=== PATIENT | female | born 1950 | race Caucasian/White ===

== ENCOUNTER 2017-01-19 13:33 | Emergency (ER) | payer OTHER, MEDICARE ==
[~2017-01-19] VITALS: Ht 152.4 cm; Wt 46.7 kg
[~2017-01-19 13:33] MED LIST: ALENDRONATE SOD70 M2 PO; DORZOLAMIDE-TIM10 ML OPH; LEVOTHYROXINE50 MCG PO; LEVOTHYROXINE75 MCG PO; LUMIGAN2.5 ML OPH; MECLIZINE HCL25 MG PO
[2017-01-19 14:14] VITALS: BP 107/62
[2017-01-19] MEDS ORDERED: OXYBUTYNIN CHLOR5 M2 PO (15:00)
[2017-01-19 15:04] LABS: ABSOLUTE BASOPHIL COUNT 0 /CUMM (0.0-0.2); ABSOLUTE EOSINOPHIL COUNT 0.4 /CUMM (0.0-0.7); ABSOLUTE GRANULOCYTE CT 2.5 /CUMM (1.4-6.5); ABSOLUTE LYMPH COUNT 1.6 /CUMM (1.2-3.4); ABSOLUTE MONOCYTE COUNT 0.5 /CUMM (0.10-0.60); EOSINOPHIL % 7.1 % (0-5); GRANULOCYTE % 49.5 % (42.2-75.2); HEMATOCRIT 38.7 % (37-47); MEAN CORPUSCULAR HGB 31.1 PG (27.0-31.0); MEAN CORPUSCULAR HGB CONC 34.1 G/DL (33.0-37.0); MEAN CORPUSCULAR VOLUME 91.3 FL (81.0-99.0); MEAN PLATELET VOLUME 7.5 FL (7.4-10.4); PLATELET COUNT 180 /CUMM (130-400); RBC DISTRIBUTION WIDTH 13.6 % (11.5-14.5); RED BLOOD CELL CT 4.23 /CUMM (4.20-5.40)
--- NOTE | 2017-01-19 15:09 | CT SCAN REPORT ---
EXAMINATION: CT HEAD WITHOUT CONTRAST CT CERVICAL SPINE WITHOUT CONTRAST CLINICAL INFORMATION: 66-year-old woman with right arm numbness and tingling. COMPARISON: None. TECHNIQUE: Imaging was performed from the skull base to vertex without intravenous administration of contrast. In addition, helical noncontrast CT imaging was acquired through the cervical spine and source images were reviewed along with axial reconstructions and sagittal and coronal MPRs. DLP: 787 mGy-cm FINDINGS: HEAD: No intracranial mass, hemorrhage, or midline shift is visualized. The ventricles and sulci are age-appropriate. No extra-axial collections are identified. There is mild mucosal thickening in the ethmoid air cells. CERVICAL SPINE: There is no evidence of acute cervical spine fracture. Vertebral bodies remain normal in height. There is straightening of the normal cervical lordosis and subtle anterolisthesis of C5 on C6. Degenerative endplate changes are most apparent at C6-C7, where there is also mild loss of normal disc space. There are coarse calcifications in the right lobe of the thyroid gland. No other pre- or paravertebral soft tissue abnormality is identified. Limited assessment of the lung apices is unremarkable. IMPRESSION: 1. No acute intracranial pathology. 2. No CT evidence of acute cervical spine fracture or traumatic subluxation.
--- NOTE | 2017-01-19 15:31 | ED UPPER/LOWER EXTREMITY COMPL ---
History of Present Illness General Chief Complaint: Upper Extremity Problem Stated Complaint: RT ARM NUMBNESS Source: patient, family, old records Exam Limitations: no limitations Vital Signs & Intake/Output Vital Signs & Intake/Output Vital Signs Date Time Temp Pulse Resp B/P Pulse O2 O2 Flow FiO2 Ox Delivery Rate 01/19 1414 97.6 20 107/62 97 Room Air Allergies Uncoded Allergies: CHOCOLATE (SEIZURES 08/18/16) Reconcile Medications Alendronate Sodium 70 MG TABLET 1 TAB PO QW BONE (Reported) in the morning, at least 30 minutes before the first food, beverage, or medication of the day Bimatoprost (Lumigan) 2.5 ML DROPS 1 GTT OPH QPM GLAUCOMA (Reported) Dorzolamide HCl/Timolol Maleat (Dorzolamide-Timolol Eye Drops) 10 ML DROPS 1 GTT OPH BID GLAUCOMA (Reported) Levothyroxine Sodium 75 MCG TABLET 1 TAB PO DAILY AC THYROID (Reported) Levothyroxine Sodium 50 MCG TABLET 1 TAB PO DAILY AC THYROID (Reported) Oxybutynin Chloride 5 MG TABLET 1 TAB PO BID BLADDER (Reported) Triage Note: presents to ed for evaluation fo right arm and shoulder pain and numbness of the right hand. she took an aspirin and was recommended by her pharmacist to be evaluated in the ed. denied chest pain, nausea or diaphresis. she nwas at rest when the symptoms began approximately one hr ago and subsided without interventions. Triage Nurses Notes Reviewed? yes Onset: Just prior to arrival Duration: hour(s):, better, gone now Timing: recent history Severity: mild Pain/Injury Location: Right: Shoulder, Forearm, Hand. Method of Injury: unknown Modifying Factors: Improves With: rest. 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 She has had congestion nonproductive cough started Mucinex so she returned to the pharmacy to ask if this is a side effect and was given aspirin and referred to the emergency department. 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 She denies fever chills nausea vomiting diarrhea abdominal pain chest pain shortness of breath headache dysuria rash bleeding trauma change in bowel bladder habit Past History Travel History Traveled to [place] past 21 day No Medical History Any Pertinent Medical History? see below for history EENT: glaucoma, hearing loss Musculoskeletal: osteoporosis Endocrine: hypothyroidism Surgical History Surgical History: non-contributory Psychosocial History What is your primary language Mohawk Tobacco Use: Never used Family History Hx Contributory? No Review of Systems Review of Systems Constitutional: Reports: no symptoms. EENTM: Reports: see HPI, nasal congestion. Respiratory: Reports: see HPI, cough. Cardiovascular: Reports: no symptoms. Gastrointestinal/Abdominal: Reports: no symptoms. Genitourinary: Reports: no symptoms. Musculoskeletal: Reports: see HPI. Skin: Reports: no symptoms. Neurological/Psychological: Reports: see HPI, numbness. Hematologic/Endocrine: Reports: no symptoms. Immunological: Reports: no symptoms. All Other Systems: Reviewed and Negative Physical Exam Physical Exam General Appearance: well developed/nourished, alert, awake, anxious, mild distress Head: atraumatic, normal appearance Eyes: Bilateral: normal appearance, PERRL, EOMI. Ears, Nose, Throat: normal pharynx, normal ENT inspection, hearing grossly normal Neck: normal inspection, supple, full range of motion, no midline tenderness Cardiovascular/Respiratory: normal breath sounds, normal peripheral pulses, regular rate/rhythm, no respiratory distress Peripheral Pulses: 4+ carotid (R), 4+ carotid (L), 2+ radial (R), 2+ radial (L) Back: normal inspection, normal range of motion, no vertebral tenderness Shoulder Left: normal range of motion, normal inspection Shoulder Right: normal range of motion, normal inspection Elbow Left: normal range of motion, normal inspection Elbow Right: normal range of motion, normal inspection Hand Left: normal inspection, normal range of motion Hand Right: normal inspection, normal range of motion Upper Extremity Reflexes: 2+: bicep (R), bicep (L), tricep (R), tricep (L). Leg Left: normal range of motion, normal inspection Leg Right: normal range of motion, normal inspection Hip Left: normal range of motion, normal inspection Hip Right: normal range of motion, normal inspection Knee Left: normal range of motion, normal inspection Knee Right: normal range of motion, normal inspection Foot Left: normal inspection, normal range of motion Foot Right: normal inspection, normal range of motion Lower Extremity Reflexes: 2+: knee (R), knee (L), ankle (R), ankle (L). Neurologic/Tendon: normal sensation, normal motor functions, normal tendon functions Skin: intact, normal color, warm/dry Lymphatic: no anterior cervical roshni Progress Differential Diagnosis: sprain, radiculopathy Plan of Care: Orders Procedure Date/time Status TROPONIN LEVEL 01/19 1429 Complete MAGNESIUM 01/19 1429 Complete COMPREHENSIVE METABOLIC PANEL 01/19 1429 Complete CBC WITHOUT DIFFERENTIAL 01/19 142 Complete EKG 01/19 1339 Active Laboratory Tests 01/19/17 1445: Anion Gap 9, Estimated GFR > 60, BUN/Creatinine Ratio 22.2, Glucose 87, Calcium 9.4, Magnesium 2.0, Total Bilirubin 0.4, AST 25, ALT 28, Alkaline Phosphatase 57 , Troponin I < 0.01, Total Protein 6.5, Albumin 3.6, Globulin 2.9, Albumin/ Globulin Ratio 1.2, CBC w Diff NO MAN DIFF REQ, RBC 4.23, MCV 91.3, MCH 31.1 H, RDW 13.6, MPV 7.5, Gran % 49.5, Lymphocytes % 31.6, Monocytes % 10.8 H, Eosinophils % 7.1 H, Basophils % 1.0, Absolute Granulocytes 2.5, Absolute Lymphocytes 1.6, Absolute Monocytes 0.5, Absolute Eosinophils 0.4, Absolute Basophils 0, PUBS MCHC 34.1 Diagnostic Imaging: Viewed by Me: CT Scan. Discussed w/RAD: CT Scan. Radiology Impression: no acute abnormality, no fracture, FINDINGS: HEAD: No intracranial mass, hemorrhage, or midline shift is visualized. The ventricles and sulci are age-appropriate. No extra-axial collections are identified. There is mild mucosal thickening in the ethmoid air cells. CERVICAL SPINE: There is no evidence of acute cervical spine fracture. Vertebral bodies remain normal in height. There is straightening of the normal cervical lordosis and subtle anterolisthesis of C5 on C6. Degenerative endplate changes are most apparent at C6-C7, where there is also mild loss of normal disc space. There are coarse calcifications in the right lobe of the thyroid gland. No other pre- or paravertebral soft tissue abnormality is identified. Limited assessment of the lung apices is unremarkable. IMPRESSION: 1. No acute intracranial pathology. 2. No CT evidence of acute cervical spine fracture or traumatic subluxation. Initial ED EKG: normal axis, normal intervals, normal p-waves, normal QRS complex, normal sinus rhythm, no ST T wave changes Departure Departure Time of Disposition: 1536 Disposition: HOME OR SELF CARE Condition: Stable Clinical Impression Primary Impression: Radicular pain of right upper extremity Referrals: VERENA MCPHERSON MD (PCP/Family) Departure Forms: Customer Survey General Discharge Information
== END 2017-01-19 15:52 ==
LOC: ERH 13:33
PROVIDERS: Emergency Medicine
DX: M54.12 Radiculopathy, cervical region (principal)
CPT/HCPCS: 93005; 93010

== ENCOUNTER 2018-03-05 17:11 | Emergency (ER) | payer OTHER, MEDICARE ==
[~2018-03-05 17:11] MED LIST changes: -LUMIGAN2.5 ML OPH; +LUMIGAN2.5 ML OS; +OXYBUTYNIN CHLOR5 M2 PO
--- NOTE | 2018-03-05 18:34 | ED CARDIAC/CP/PALPITATIONS ---
History of Present Illness General Chief Complaint: Chest Pain Stated Complaint: BIBA CHEST PAIN Source: patient, family Exam Limitations: no limitations Vital Signs & Intake/Output Vital Signs & Intake/Output Vital Signs Date Time Temp Pulse Resp B/P B/P Pulse O2 O2 Flow FiO2 Mean Ox Delivery Rate 03/05 2052 76 20 109/56 97 Room Air 03/056 98.9 82 18 120/56 97 Room Air 03/05 1730 99.6 83 20 127/69 95 Room Air Triage Nurses Notes Reviewed? yes Onset: Gradual Duration: hour(s): Timing: multiple episodes today Quality/Severity: moderate Location: central, epigastric Radiation: back, left breast Activities at Onset: walking HPI: 67yo female with hx of osteoporosis (on Alendronate) BIBA complaining of epigastric pain. Patient states that over the past few months she has had a few intermittent episodes of epigastric pain described as worse with walking. The pain always resolved on its own, patient never sought medical attention. Patient was worried this was related to her alendronate, she stopped taking this medication for the past 2 weeks. Patient states that today she had multiple episodes of epigastric pain described as sharp, 8/10, radiating to left chest and to back. Patient had a constant episode for which she called 911 for. Patient reports that currently she has no pain, it has resolved for the time being. Patient denies fevers, chills, malaise, dyspnea, cough, hemoptysis, vomiting, diarrhea. (Kacey ROWLAND,Kelsey Page) Allergies Coded Allergies: chocolate flavor (MIGRAINES, SEIZURES 03/05/18) Reconcile Medications Alendronate Sodium 70 MG TABLET 1 TAB PO QTHURS BONE (Reported) in the morning, at least 30 minutes before the first food, beverage, or medication of the day Bimatoprost (Lumigan) 2.5 ML DROPS 1 GTT OS QHS GLAUCOMA (Reported) Cholecalciferol (Vitamin D3) (Vitamin D) 1,000 UNIT TABLET 1 TAB PO DAILY SUPPLEMENT (Reported) Dorzolamide HCl/Timolol Maleat (Dorzolamide-Timolol Eye Drops) 10 ML DROPS 1 GTT OPH BID GLAUCOMA (Reported) Levothyroxine Sodium 75 MCG TABLET 1 TAB PO SATSUN THYROID (Reported) Levothyroxine Sodium 50 MCG TABLET 1 TAB PO MONTHRUFRI THYROID (Reported) Oxybutynin Chloride 5 MG TABLET 1 TAB PO BID BLADDER (Reported) Phenazopyridine HCl 200 MG TABLET 1 TAB PO BID DYSURIA (Reported) after food Sulfamethoxazole/Trimethoprim (Sulfamethoxazole-Tmp Ds Tablet) 800 MG-160 MG TABLET 1 TAB PO BID ABX (Reported) (Rey LEE,Sanjay Landers) Past History Travel History Traveled to [place] past 21 day No Medical History Any Pertinent Medical History? see below for history EENT: glaucoma, hearing loss Musculoskeletal: osteoporosis Endocrine: hypothyroidism Surgical History Surgical History: non-contributory Psychosocial History What is your primary language Kiswahili Family History Hx Contributory? No (Kelsey Cooley) Review of Systems Review of Systems Constitutional: Reports: no symptoms. EENTM: Reports: no symptoms. Respiratory: Reports: no symptoms. Cardiovascular: Reports: see HPI. GI: Reports: see HPI. Genitourinary: Reports: no symptoms. Musculoskeletal: Reports: no symptoms. Skin: Reports: no symptoms. Neurological/Psychological: Reports: no symptoms. Hematologic/Endocrine: Reports: no symptoms. Immunologic/Allergic: Reports: no symptoms. All Other Systems: Reviewed and Negative (Kelsey Cooley) Physical Exam Physical Exam General Appearance: well developed/nourished, no apparent distress, alert, awake Head: atraumatic, normal appearance Eyes: Bilateral: normal appearance. Ears, Nose, Throat: hearing grossly normal Neck: normal inspection, supple, full range of motion Respiratory: normal breath sounds, chest non-tender, no respiratory distress, lungs clear Cardiovascular: regular rate/rhythm, normal peripheral pulses Peripheral Pulses: 2+ radial (R), 2+ radial (L) Gastrointestinal: normal bowel sounds, soft, non-tender, no organomegaly Back: normal inspection, normal range of motion Extremities: normal inspection, normal range of motion, no edema Neurologic/Psych: awake, alert, oriented x 3 Skin: intact, normal color, warm/dry Core Measures ACS in differential dx? Yes CVA/TIA Diagnosis No Sepsis Present: No Sepsis Focused Exam Completed? No (Kelsey Cooley) Progress Differential Diagnosis: AMI, aortic dissection, atrial fibrillation, CHF/pulm edema, costochondritis, hyperventilation, musculoskeletal pain, myocarditis, pancreatitis, pericarditis, pneumonia, pneumothorax, PSVT, pulmonary embolism, unstable angina, V-fib/V-Tach Plan of Care: Orders Procedure Date/time Status TROPONIN LEVEL 03/05 2152 Complete EKG 03/05 2100 Active TROPONIN LEVEL 03/05 1949 Complete PARTIAL THROMBOPLASTIN TIME 03/05 1949 Complete PROTHROMBIN TIME 03/05 1949 Complete LIPASE 03/05 1949 Complete D-DIMER 03/05 1949 Complete AMYLASE 03/05 1949 Complete COMPREHENSIVE METABOLIC PANEL 03/05 1932 Complete CBC WITHOUT DIFFERENTIAL 03/05 1932 Complete Add-on Test (ER Only) 03/05 190 Active Add-on Test (ER Only) 03/05 1821 Active Telemetry/Tyre Finisher And Examiner 03/05 172 Active EKG 03/05 171 Active Laboratory Tests 03/05/18 2218: Troponin I < 0.01 03/05/182099: Troponin I Cancelled 03/05/181931: Anion Gap 11, Estimated GFR > 60, BUN/Creatinine Ratio 18.9, Glucose 85, Calcium 8.5, Total Bilirubin 0.5, AST 21, ALT 24, Alkaline Phosphatase 67, Troponin I < 0.01, Total Protein 6.1 L, Albumin 3.2 L, Globulin 2.9, Albumin/Globulin Ratio 1.1, Amylase 65, Lipase 61, PT 12.7 H, INR 1.16, APTT 32, D-Dimer High Sensitivty < 200, CBC w Diff NO MAN DIFF REQ, RBC 4.12 L, MCV 91.2, MCH 30.6, MCHC 33.6, RDW 13.5, MPV 7.4, Gran % 71.6, Lymphocytes % 12.1 L, Monocytes % 12.7 H, Eosinophils % 3.5, Basophils % 0.1, Absolute Granulocytes 4.2, Absolute Lymphocytes 0.7 L, Absolute Monocytes 0.7 H, Absolute Eosinophils 0.2, Absolute Basophils 0 03/05/18 1800: Sodium Cancelled, Potassium Cancelled, Chloride Cancelled, Carbon Dioxide Cancelled, Anion Gap Cancelled, BUN Cancelled, Creatinine Cancelled, Estimated GFR Cancelled, BUN/Creatinine Ratio Cancelled, Glucose Cancelled, Calcium Cancelled, Total Bilirubin Cancelled, AST Cancelled, ALT Cancelled, Alkaline Phosphatase Cancelled, Troponin I Cancelled, Total Protein Cancelled, Albumin Cancelled, Globulin Cancelled, Albumin/Globulin Ratio Cancelled, PT Cancelled, INR Cancelled, APTT Cancelled, D-Dimer High Sensitivty Cancelled, CBC w Diff Cancelled, WBC Cancelled, RBC Cancelled, Hgb Cancelled, Hct Cancelled, MCV Cancelled, MCH Cancelled, MCHC Cancelled, RDW Cancelled, Plt Count Cancelled, MPV Cancelled, Gran % Cancelled, Lymphocytes % Cancelled, Monocytes % Cancelled, Eosinophils % Cancelled, Basophils % Cancelled, Absolute Granulocytes Cancelled, Absolute Lymphocytes Cancelled, Absolute Monocytes Cancelled, Absolute Eosinophils Cancelled, Absolute Basophils Cancelled EKG is in sinus rhythm with nonspecific changes present. D-dimer is negative, low suspicion for acute pulmonary embolism at this time. Patient's first troponin enzyme is negative. We'll obtain chest x-ray to further evaluate this patient's sternal pain. Given the patient's history of this phosphonate use with epigastric pain will obtain abdominal CT scan for further evaluation. Patient remains without pain at this time. The patient was signed out to Dr. Le pending repeat EKG, troponin, labs. Diagnostic Imaging: Viewed by Me: Radiology Read. Discussed w/RAD: Radiology Read. CXR Impression: PATIENT: ESTUARDO GRAY PRESENT AGE: 67 PATIENT ACCOUNT NO: [id number] : 48 LOCATION: [facility] ORDERING PHYSICIAN: Kelsey ROWLAND SERVICE DATE: 03/05/18 EXAM TYPE: RAD - XRY-CHEST XRAY, TWO VIEWS EXAMINATION: XR CHEST CLINICAL INFORMATION: Epigastric pain. Rule out free air. COMPARISON: None TECHNIQUE: 2 views of the chest were obtained. FINDINGS: There is no free air under the hemidiaphragms. Coarse reticular markings are noted in the lungs. No airspace opacities or pleural effusions are seen. The cardiomediastinal silhouette is normal. No acute osseous abnormality is evident. IMPRESSION: No free air visible under the hemidiaphragms. Chronic coarse reticular markings in the lungs. No focal consolidation. DICTATED BY: Sanjay Hickman MD DATE/TIME DICTATED:03/05/181929 FUNCTIONAL SUPPORT ANALYST:LARRY DATE/TIME TRANSCRIBED:03/05/181929 CONFIDENTIAL, DO NOT COPY WITHOUT APPROPRIATE AUTHORIZATION. <Electronically signed in Other Vendor System> SIGNED BY: Sanjay Hickman MD 03/05/181933 Initial ED EKG: sinus rhythm @79bpm, nonspecific ST changes (Kacey ROWLAND,Kelsey Page) Diagnostic Imaging: Viewed by Me: CT Scan. Discussed w/RAD: CT Scan. Radiology Impression: PATIENT: ESTUARDO GRAY PRESENT AGE: 67 PATIENT ACCOUNT NO: [id number] : 48 LOCATION: ER ORDERING PHYSICIAN: Kelsey ROWLAND SERVICE DATE: 03/05/18 EXAM TYPE: CAT - CT ABD & PELVIS W IV CONTRAST EXAMINATION: CT ABDOMEN AND PELVIS WITH CONTRAST CLINICAL INFORMATION: Epigastric pain on Alendronate. COMPARISON: Limited abdominal ultrasound 12/05/2013. Chest CT 03/26/2016. TECHNIQUE: Multidetector volumetric imaging was performed of the abdomen and pelvis following IV administration of 95 mL of Optiray 320 intravenous contrast. Sagittal and coronal reformatted images were obtained on the technologist's workstation. FINDINGS: Atelectasis versus scarring The liver, spleen, adrenal glands, and pancreas are normal. Gallbladder is surgically absent with surgical clips in the gallbladder fossa. Common bile duct measures 1 cm, not unexpected following cholecystectomy. The kidneys exhibit symmetric nephrograms without evidence of hydronephrosis or nephrolithiasis. No focal renal lesions. The stomach is partially decompressed and not well evaluated. Small diverticulum projecting posteriorly from the proximal posterior greater curvature of the stomach is stable. There is no free air. Large volume intracolonic stool. The large and small bowel are normal in caliber without evidence of mechanical obstruction. No focal inflammatory changes adjacent to the large or the small bowel. The appendix is normal. There is no free air and there is no intra- abdominal free fluid. No mesenteric or retroperitoneal adenopathy. There is aortoiliac atherosclerotic calcification. Calcified uterine fibroids. No pelvic adenopathy. No free fluid within the pelvis. There are no acute osseous abnormalities. No significant soft tissue abnormality. IMPRESSION: - No acute findings to explain the patient's symptoms. - The stomach is partially decompressed and not well evaluated. There is no free air. - Calcified uterine fibroids. - Cholecystectomy. - Large volume intracolonic stool. No bowel obstruction. DICTATED BY: Donal Hurtado MD DATE/TIME DICTATED:03/05/181937 FUNCTIONAL SUPPORT ANALYST:LARRY DATE/TIME TRANSCRIBED:03/05/181937 CONFIDENTIAL, DO NOT COPY WITHOUT APPROPRIATE AUTHORIZATION. <Electronically signed in Other Vendor System> SIGNED BY: Donal Hurtado MD 03/05/181954 Repeat EKG: unchanged Rhythm Strip: normal sinus rhythm Comments: Patient and family have been updated on lab and CAT scan results. Questions have been answered. (Rey LEE,Sanjay Landers) Departure Departure Condition: Stable Clinical Impression Primary Impression: Epigastric pain Secondary Impressions: Chest pain Qualifiers: Chest pain type: unspecified Qualified Code: R07.9 - Chest pain, unspecified Departure Forms: Customer Survey General Discharge Information (Kacey ROWLAND,Kelsey Page) Departure Disposition: HOME OR SELF CARE Referrals: Darnell LEE,Satish Burt MD,Kaya (PCP/Family) Additional Instructions: FOLLOW UP WITH DR. LEZAMA AND DR. DELON WOOD IF SYMPTOMS WORSEN OR FOR ANY CONCERNS PA/AWNINGS MECHANIC Co-Sign Statement Statement: ED Attending supervision documentation- [X] I saw and evaluated the patient. I have also reviewed all the pertinent lab results and diagnostic results. I agree with the findings and the plan of care as documented in the PA's/AWNINGS MECHANIC's documentation. [X] I have reviewed the ED Record and agree with the PA's/AWNINGS MECHANIC's documentation. [] Additions or exceptions (if any) to the PAs/AWNINGS MECHANIC's note and plan are summarized below: [] (Rey LEE,Sanjay Landers) Critical Care Note Critical Care Note Critical Care Time: non-applicable (Kelsey Cooley)
--- NOTE | 2018-03-05 19:34 | RADIOLOGY REPORT ---
EXAMINATION: XR CHEST CLINICAL INFORMATION: Epigastric pain. Rule out free air. COMPARISON: None TECHNIQUE: 2 views of the chest were obtained. FINDINGS: There is no free air under the hemidiaphragms. Coarse reticular markings are noted in the lungs. No airspace opacities or pleural effusions are seen. The cardiomediastinal silhouette is normal. No acute osseous abnormality is evident. IMPRESSION: No free air visible under the hemidiaphragms. Chronic coarse reticular markings in the lungs. No focal consolidation.
--- NOTE | 2018-03-05 19:55 | CT SCAN REPORT ---
EXAMINATION: CT ABDOMEN AND PELVIS WITH CONTRAST CLINICAL INFORMATION: Epigastric pain on Alendronate. COMPARISON: Limited abdominal ultrasound 12/05/2013. Chest CT 03/26/2016. TECHNIQUE: Multidetector volumetric imaging was performed of the abdomen and pelvis following IV administration of 95 mL of Optiray 320 intravenous contrast. Sagittal and coronal reformatted images were obtained on the technologist's workstation. FINDINGS: Atelectasis versus scarring The liver, spleen, adrenal glands, and pancreas are normal. Gallbladder is surgically absent with surgical clips in the gallbladder fossa. Common bile duct measures 1 cm, not unexpected following cholecystectomy. The kidneys exhibit symmetric nephrograms without evidence of hydronephrosis or nephrolithiasis. No focal renal lesions. The stomach is partially decompressed and not well evaluated. Small diverticulum projecting posteriorly from the proximal posterior greater curvature of the stomach is stable. There is no free air. Large volume intracolonic stool. The large and small bowel are normal in caliber without evidence of mechanical obstruction. No focal inflammatory changes adjacent to the large or the small bowel. The appendix is normal. There is no free air and there is no intra-abdominal free fluid. No mesenteric or retroperitoneal adenopathy. There is aortoiliac atherosclerotic calcification. Calcified uterine fibroids. No pelvic adenopathy. No free fluid within the pelvis. There are no acute osseous abnormalities. No significant soft tissue abnormality. IMPRESSION: - No acute findings to explain the patient's symptoms. - The stomach is partially decompressed and not well evaluated. There is no free air. - Calcified uterine fibroids. - Cholecystectomy. - Large volume intracolonic stool. No bowel obstruction.
[2018-03-05 20:06] LABS: ABSOLUTE BASOPHIL COUNT 0 /CUMM (0.0-0.2); ABSOLUTE EOSINOPHIL COUNT 0.2 /CUMM (0.0-0.7); ABSOLUTE GRANULOCYTE CT 4.2 /CUMM (1.4-6.5); ABSOLUTE LYMPH COUNT 0.7 /CUMM (1.2-3.4); ABSOLUTE MONOCYTE COUNT 0.7 /CUMM (0.10-0.60); BASOPHIL % 0.1 % (0.0-2.0); EOSINOPHIL % 3.5 % (0-5); GRANULOCYTE % 71.6 % (42.2-75.2); HEMATOCRIT 37.6 % (37-47); MEAN CORPUSCULAR HGB 30.6 PG (27.0-31.0); MEAN CORPUSCULAR HGB CONC 33.6 G/DL (33.0-37.0); MEAN CORPUSCULAR VOLUME 91.2 FL (81.0-99.0); MEAN PLATELET VOLUME 7.4 FL (7.4-10.4); PLATELET COUNT 189 /CUMM (130-400); RBC DISTRIBUTION WIDTH 13.5 % (11.5-14.5); RED BLOOD CELL CT 4.12 /CUMM (4.20-5.40); WHITE BLOOD CELL COUNT 5.9 /CUMM (4.8-10.8)
[2018-03-05 20:14] LABS: PT 12.7 SEC (9.4-12.5); PTT 32 SEC (25-37)
[2018-03-05] MEDS ORDERED: VITAMIN D1000 UNIT PO (21:13)
[2018-03-05] MEDS ORDERED: SULFAMETHOXAZO1 EAC1 PO (21:14)
[2018-03-05] MEDS ORDERED: PHENAZOPYRIDIN200 M3 PO (21:19)
[2018-03-05 23:15] VITALS: BP 127/59
== END 2018-03-05 23:21 ==
LOC: ERH 17:11
PROVIDERS: Physician Assistant
DX: R10.13 Epigastric pain (principal); R07.9 Chest pain, unspecified
CPT/HCPCS: 71046; 74177; 93005; 93010

== ENCOUNTER 2018-03-09 13:23 | Emergency (ER) | payer OTHER, MEDICARE ==
[~2018-03-09] VITALS: Ht 152.4 cm; Wt 49.0 kg
[~2018-03-09 13:23] MED LIST changes: +PHENAZOPYRIDIN200 M3 PO; +SULFAMETHOXAZO1 EAC1 PO; +VITAMIN D1000 UNIT PO
[2018-03-09 13:30] VITALS: BP 108/55
--- NOTE | 2018-03-09 15:24 | ED SKIN/ALLERGY COMPLAINT ---
History of Present Illness General Chief Complaint: Skin Rash/ Abcess Stated Complaint: RASH ALL OVER Source: patient Exam Limitations: no limitations Vital Signs & Intake/Output Vital Signs & Intake/Output Vital Signs Date Time Temp Pulse Resp B/P B/P Pulse O2 O2 Flow FiO2 Mean Ox Delivery Rate 03/09 1330 95.9 56 18 108/55 99 Room Air Allergies Coded Allergies: chocolate flavor (MIGRAINES, SEIZURES 03/05/18) Reconcile Medications Alendronate Sodium 70 MG TABLET 1 TAB PO QTHURS BONE (Reported) in the morning, at least 30 minutes before the first food, beverage, or medication of the day Bimatoprost (Lumigan) 2.5 ML DROPS 1 GTT OS QHS GLAUCOMA (Reported) Cholecalciferol (Vitamin D3) (Vitamin D) 1,000 UNIT TABLET 1 TAB PO DAILY SUPPLEMENT (Reported) Dorzolamide HCl/Timolol Maleat (Dorzolamide-Timolol Eye Drops) 10 ML DROPS 1 GTT OPH BID GLAUCOMA (Reported) Hydroxyzine Hydrochloride (Atarax) 50 MG TAB 1 TAB PO TID ITCHING Levothyroxine Sodium 75 MCG TABLET 1 TAB PO SATSUN THYROID (Reported) Levothyroxine Sodium 50 MCG TABLET 1 TAB PO MONTHRUFRI THYROID (Reported) Oxybutynin Chloride 5 MG TABLET 1 TAB PO BID BLADDER (Reported) Phenazopyridine HCl 200 MG TABLET 1 TAB PO BID DYSURIA (Reported) after food Prednisone 50 MG TABLET 1 TAB PO DAILY RASH Sulfamethoxazole/Trimethoprim (Sulfamethoxazole-Tmp Ds Tablet) 800 MG-160 MG TABLET 1 TAB PO BID ABX (Reported) Triage Note: 67F SEEN 03/05 FOR CHEST PAIN AND WAS DISCHARGED HOME AT NIGHT, WOKE UP WITH ITCHING AND RASH BEGAN TO LEGS AND NOW ALL OVER. DENIES NEW MEDS OR MEDS IN ED, BUT DOES REPORT HAVING CONTRAST CT WHILE HERE. O2 SAT 99% RA AND AIRWAY PATENT, NO ANGIOEDEMA OBSERVED. MANAGING SECRETIONS WELL. LEFT EYE REDDENED AND ALSO ITCHY Triage Nurses Notes Reviewed? yes Onset: Abrupt Duration: day(s):, constant Timing: recent history Severity: moderate, severe Possible Factors: no cause identified No Modifying Factors: none HPI: 67-year-old female comes into the emergency room with complaints of a rash. Patient reports that she was seen here the other day. She had a complete cardiac workup which was normal. She reports that she started with a rash for a couple days. Located on her legs her rear end her arms, in her chest. Itching. Denies any new medications. Denies any new foods. Denies any tongue swelling or difficulty breathing. She is here primarily for the rash. She has no complaints of chest pain or shortness of breath. (Maynor Velazquez) Past History Travel History Traveled to [place] past 21 day No Medical History Any Pertinent Medical History? see below for history Neurological: NONE EENT: glaucoma, hearing loss Cardiovascular: NONE Respiratory: NONE Gastrointestinal: NONE Hepatic: NONE Renal: NONE Musculoskeletal: osteoporosis Psychiatric: NONE Endocrine: hypothyroidism Blood Disorders: NONE Cancer(s): NONE CONSULTING SYSTEMS ENGINEER/Reproductive: NONE Surgical History Surgical History: non-contributory Psychosocial History What is your primary language Citizen Of [place] Tobacco Use: Refused to answer Family History Hx Contributory? No (Maynor Velazquez) Review of Systems Review of Systems Constitutional: Reports: no symptoms. EENTM: Reports: no symptoms. Respiratory: Reports: no symptoms. Cardiovascular: Reports: no symptoms. GI: Reports: no symptoms. Genitourinary: Reports: no symptoms. Musculoskeletal: Reports: no symptoms. Skin: Reports: see HPI. Neurological/Psychological: Reports: no symptoms. Hematologic/Endocrine: Reports: no symptoms. Immunologic/Allergic: Reports: no symptoms. All Other Systems: Reviewed and Negative (Maynor Velazquez) Physical Exam Physical Exam General Appearance: well developed/nourished, mild distress Head: atraumatic Eyes: Bilateral: normal appearance. Ears, Nose, Throat: normal ENT inspection, hearing grossly normal Neck: normal inspection Respiratory: no respiratory distress Cardiovascular: regular rate/rhythm Gastrointestinal: non-tender Back: normal inspection Extremities: normal inspection, normal range of motion, no edema Neurologic/Psych: awake, alert, oriented x 3, normal mood/affect Skin: intact, rash Skin Problem Location: papular rash, erythematous,generalized (Maynor Velazquez) Progress Differential Diagnosis: abscess/cellulitis, allergic reaction, anaphylaxis, angioedema, contact dermatitis, drug reaction Plan of Care: 03/09/2018 6:23:16 PM Patient started on prednisone and hydroxyzine. Follow-up with appointment coordinator. No evidence of anaphylaxis. Clinically looks well. Rashes not appear to be infectious. Told patient etiology is unclear at this time and she needs appropriate follow-up but patient is safe for discharge. (Maynor Velazquez) Departure Departure Disposition: HOME OR SELF CARE Condition: Stable Clinical Impression Primary Impression: Rash and nonspecific skin eruption Referrals: Kaya Burt MD (PCP/Family) Additional Instructions: Take prednisone and hydroxyzine as prescribed. Follow-up with appointment coordinator. Return if any concerns worsening symptoms. Please go over all results of today's visit with your primary care doctor. Contact your primary care doctor to let them know you were here in the emergency room. There may be nonspecific findings which may not be related to your visit today here in the emergency room but may require further evaluation and chronic monitoring by your primary care doctor. If you had a laceration today the chance of foreign body always remains. You should follow-up with your primary care doctor for recheck in 3-5 days for a wound check. If you had an x-ray done there is a chance that a fracture could have been missed on initial read and you should follow-up with your primary care doctor for repeat x-rays if symptoms persist. If your blood pressure was elevated here in the emergency room please have rechecked by [facility] primary care doctor within the next 48. If you were prescribed a narcotic here in the emergency room or any type of controlled substances you're not allowed to drive while taking this medication or operate any type of heavy machinery. Narcotics can make you feel lightheaded dizziness nausea and can cause constipation. You may need to pickle maker a stool softener. Thank you for choosing [facility] emergency room. Please return to the emergency room immediately if you have any other concerns worsening of symptoms. Departure Forms: Customer Survey General Discharge Information Prescriptions: Current Visit Scripts Prednisone 1 TAB PO DAILY #5 TAB Hydroxyzine Hydrochloride (Atarax) 1 TAB PO TID #30 TAB (Maynor Velazquez) PA/STORE HAND Co-Sign Statement Statement: ED Attending supervision documentation- [] I saw and evaluated the patient. I have also reviewed all the pertinent lab results and diagnostic results. I agree with the findings and the plan of care as documented in the PA's/STORE HAND's documentation. [X] I have reviewed the ED Record and agree with the PA's/STORE HAND's documentation. [] Additions or exceptions (if any) to the PAs/STORE HAND's note and plan are summarized below: [] (Rey LEE,Sanjay Landers)
[2018-03-09] MEDS ORDERED: HYDROXYZINE HCL50 M1 PO (15:26)
[2018-03-09] MEDS ORDERED: PREDNISONE50 M1 PO (15:26)
== END 2018-03-09 15:34 ==
LOC: ERH 13:23
DX: R21 Rash and other nonspecific skin eruption (principal)

== ENCOUNTER → 2018-03-20 | Day surgery (SDC) | payer OTHER, MEDICARE ==
[~2018-03-20] VITALS: Ht 154.9 cm; Wt 49.9 kg
[~2018-03-20] MED LIST changes: +HYDROXYZINE HCL50 M1 PO; +PREDNISONE50 M1 PO
--- NOTE | 2018-03-21 12:19 | Operative Report ---
Operative/Inv Procedure Report Surgery Date: 03/20/18 Name of Procedure: D&C hysteroscopy Pre-Operative Diagnosis: Postmenopausal bleeding Post-Operative Diagnosis: Same ectropion Estimated Blood Loss: scant Surgeon/Claims Attorney: Emilia Fields MD Anesthesia: moderate sedation Operative/Procedure Note Note: Patient was taken to the operating room placed in dorsal supine position. After adequate anesthesia, patient was prepped and draped for surgery. Examination under anesthesia was performed. CO2 tenaculum was placed on the anterior lip of the cervix gentle downward traction was used. The cervix was dilated 29 Hegar to left insertion of the hysteroscope. Under direct visualization to hysteroscopy was performed using gas hysteroscope was removed and endocervical curettage was performed. And endometrial curettage was performed. All instruments removed from the vagina. The counts were correct the patient was awakened from anesthesia. And transported to recovery room awake and alert. Findings: Atrophic lining of the uterus a small ectropion on the urethra no adnexal masses otherwise normal anatomy
== END ==
LOC: STS 03:19
DX: N95.0 Postmenopausal bleeding (principal); N36.8 Other specified disorders of urethra; N85.8 Other specified noninflammatory disorders of uterus; E03.9 Hypothyroidism, unspecified
CPT/HCPCS: 88305; J0131; J2250